=== PATIENT | male | born 1995 | race African-American/Black ===

== ENCOUNTER 2023-11-04 13:08 | Inpatient (IN) | payer OTHER ==
[2023-11-04 13:40] VITALS: BMI 22.3
[2023-11-04] MEDS ORDERED: BENZOCAINE/MENTHOL (CHLORASEPTIC ) LOZENGE MM PRN (16:06)
[2023-11-04] MEDS ORDERED: guaiFENesin 600 MG TABLET.ER (FP) PO PRN (16:06)
[2023-11-04] MEDS ORDERED: MAG HYDROX/AL HYDROX/SIMETH 30 ML UNIT-DOSE CUP PO PRN (16:06)
[2023-11-04] MEDS ORDERED: DICYCLOMINE HCL 10 MG CAPSULE PO PRN (16:06)
[2023-11-04] MEDS ORDERED: ONDANSETRON *ODT* 4 MG TABLET SL PRN (16:06)
[2023-11-04] MEDS ORDERED: IBUPROFEN 400 MG TABLET (FP) PO PRN (16:06)
[2023-11-04] MEDS ORDERED: LOPERAMIDE HCL 2 MG CAPSULE PO PRN (16:06)
[2023-11-04] MEDS ORDERED: BENZONATATE 200 MG CAPSULE PO PRN (16:06)
[2023-11-04] MEDS ORDERED: BISMUTH SUBSALICYLATE 524 MG/30 ML PO PRN (16:06)
[2023-11-04] MEDS ORDERED: POLYETHYLENE GLYCOL (HEALTHYLAX) 3350 17 GM PACKET PO PRN (16:06)
[2023-11-04] MEDS ORDERED: ACETAMINOPHEN 325 MG TABLET (FP) PO PRN (16:06)
[2023-11-04] MEDS ORDERED: NALOXONE HCL (KLOXXADO) 8 MG SPRAY NS PRN (16:06)
[2023-11-04] MEDS ORDERED: MAGNESIUM HYDROX 2400MG/30ML ORAL SUSPENSION 30 ML CUP PO PRN (16:06)
[2023-11-04] MEDS ORDERED: NALOXONE HCL 0.4 MG/ML VIAL IM PRN (16:06)
[2023-11-04] MEDS: IBUPROFEN 600 MG TABLET (FP) PO PRN (18:38)
[2023-11-04] MEDS: NICOTINE 7 MG/24 HOURS TOPICAL PATCH TD SCH (19:01)
[2023-11-04] MEDS: PRENATAL VITAMINS W/ FOLIC ACID TABLET (FP) PO SCH (19:29)
[2023-11-04] MEDS: MELATONIN 5 MG TABLETS PO SCH (22:23)
[2023-11-04] MEDS: THIAMINE HCL 100 MG TABLET (FP) PO SCH (22:24)
[2023-11-04] MEDS: hydrOXYzine PAMOATE 25 MG CAPSULE (FP) PO PRN (22:24)
[2023-11-04] MEDS: METHOCARBAMOL 500 MG TABLET PO PRN (22:24)
[2023-11-05] MEDS: PRENATAL VITAMINS W/ FOLIC ACID TABLET (FP) PO SCH (10:14)
[2023-11-05] MEDS: NICOTINE 7 MG/24 HOURS TOPICAL PATCH TD SCH (10:14)
[2023-11-05] MEDS: hydrOXYzine PAMOATE 25 MG CAPSULE (FP) PO PRN (10:15)
[2023-11-05 11:36] LABS: HEMATOCRIT 39.9 % (35.4-49); HEMOGLOBIN 13.6 GM/dL (11.7-16.9); MCH 30.8 pg (25.7-33.7); MCHC 33.9 g/dl (32.0-35.9); MEAN CELL VOLUME 90.8 fl (80-96); MEAN PLT VOLUME 8.5 fl (7.5-11.1); PLATELET COUNT 259 10^3/uL (134-434); WHITE BLOOD COUNT 7.2 K/mm3 (4.0-10.0)
[2023-11-05 11:44] LABS: CHLORIDE 109 mmol/L (98-107); POTASSIUM 4.3 mmol/L (3.5-5.1); SODIUM 142 mmol/L (136-145)
[2023-11-05 11:48] LABS: BLOOD UREA NITROGEN 10.2 mg/dL (7-18); CALCIUM 9.1 mg/dL (8.5-10.1)
[2023-11-05 11:49] LABS: ANION GAP 6 mmol/L (4-13); CO2 28 mmol/L (21-32); GLUCOSE,RANDOM 89 mg/dL (74-106)
[2023-11-05 11:50] LABS: ALBUMIN 3.2 g/dl (3.4-5.0)
[2023-11-05 11:51] LABS: SGPT/ALT 33 U/L (13-61)
[2023-11-05 11:52] LABS: SGOT/AST 14 U/L (15-37)
[2023-11-05 11:53] LABS: BILIRUBIN,TOTAL 0.1 mg/dL (0.2-1); TOT PROT 6.9 g/dl (6.4-8.2)
[2023-11-05 11:54] LABS: ALK PHOS 77 U/L (45-117); CREATININE 0.6 mg/dL (0.55-1.3)
[2023-11-05] MEDS ORDERED: traZODone HCL 50 MG TABLET (FP) PO SCH (22:00)
[2023-11-05] MEDS: MELATONIN 5 MG TABLETS PO SCH (22:19)
[2023-11-05] MEDS: LACTULOSE 20 GM/30 ML UDC (FOR ORAL USE ONLY) PO SCH (22:19)
[2023-11-05] MEDS: THIAMINE HCL 100 MG TABLET (FP) PO SCH (22:19)
[2023-11-05] MEDS: IBUPROFEN 600 MG TABLET (FP) PO PRN (22:33)
[2023-11-05] MEDS: METHOCARBAMOL 500 MG TABLET PO PRN (22:33)
[2023-11-06 05:55] VITALS: RESP 16
[2023-11-06] MEDS: LACTULOSE 20 GM/30 ML UDC (FOR ORAL USE ONLY) PO SCH (06:07)
[2023-11-06 09:30] VITALS: BP 130/87; PULSE 88; TEMP 97.9
[2023-11-06] MEDS: PRENATAL VITAMINS W/ FOLIC ACID TABLET (FP) PO SCH (10:13)
[2023-11-06] MEDS: NICOTINE 7 MG/24 HOURS TOPICAL PATCH TD SCH (10:13)
== END 2023-11-06 11:08 | disposition other institution (70) | DRG 774 ==
LOC: YASAS 13:08 → Y3N 17:03
PROVIDERS: ADMIT Allergy & Immunology; ATTEND Allergy & Immunology
PROC: HZ2ZZZZ Detoxification Services for Substance Abuse Treatment (ICD-10-PCS; principal; 2023-11-04)
DX: F10.20 Alcohol dependence, uncomplicated (principal); F14.20 Cocaine dependence, uncomplicated; F17.210 Nicotine dependence, cigarettes, uncomplicated; F41.9 Anxiety disorder, unspecified; Z28.310 Unvaccinated for COVID-19; Z28.9 Immunization not carried out for unspecified reason; Z59.01 Sheltered homelessness
CPT/HCPCS: 36415; 80053; 80307; 82140; 85027; 86780; 87635; 93005; 93010

== ENCOUNTER 2024-07-11 21:56 | Inpatient (IN) | payer OTHER ==
[2024-07-11 22:39] VITALS: BMI 25.2
[2024-07-11] MEDS ORDERED: NALOXONE (NARCAN) HCL 4 MG/0.1 ML SPRAY NS PRN (23:00)
[2024-07-11] MEDS ORDERED: MAGNESIUM HYDROX 2400MG/30ML ORAL SUSPENSION 30 ML CUP PO PRN (23:00)
[2024-07-11] MEDS ORDERED: POLYETHYLENE GLYCOL (HEALTHYLAX) 3350 17 GM PACKET PO PRN (23:00)
[2024-07-11] MEDS ORDERED: hydrOXYzine PAMOATE 25 MG CAPSULE (FP) PO PRN (23:00)
[2024-07-11] MEDS: MELATONIN 5 MG TABLETS PO SCH (23:00)
[2024-07-11] MEDS ORDERED: MAG HYDROX/AL HYDROX/SIMETH 30 ML UNIT-DOSE CUP PO PRN (23:00)
[2024-07-11] MEDS ORDERED: guaiFENesin 600 MG TABLET.ER (FP) PO PRN (23:00)
[2024-07-11] MEDS ORDERED: ACETAMINOPHEN 325 MG TABLET (FP) PO PRN (23:00)
[2024-07-11] MEDS ORDERED: BENZONATATE 200 MG CAPSULE PO PRN (23:00)
[2024-07-11] MEDS ORDERED: IBUPROFEN 600 MG TABLET (FP) PO PRN (23:00)
[2024-07-11] MEDS ORDERED: BENZOCAINE/MENTHOL (CHLORASEPTIC ) LOZENGE MM PRN (23:00)
[2024-07-11] MEDS ORDERED: NALOXONE HCL 0.4 MG/ML VIAL IM PRN (23:00)
[2024-07-11] MEDS ORDERED: LOPERAMIDE HCL 2 MG CAPSULE PO PRN (23:00)
[2024-07-11] MEDS ORDERED: MELATONIN 5 MG TABLETS ONE (23:42)
[2024-07-12] MEDS: TUBERCULIN PPD 5 TU/0.1ML SYRINGE (IN PATIENT USE ONLY) ID ONE (10:37)
[2024-07-12] MEDS: NICOTINE 14 MG/24 HOURS TOPICAL PATCH TD SCH (10:37)
[2024-07-12] MEDS: PRENATAL VITAMINS W/ FOLIC ACID TABLET (FP) PO SCH (10:37)
[2024-07-12 14:55] LABS: HEMATOCRIT 41.2 % (35.4-49); HEMOGLOBIN 13.5 GM/dL (11.7-16.9); MCHC 32.7 g/dl (32.0-35.9); MEAN CELL VOLUME 91.7 fl (80-96); MEAN PLT VOLUME 7.9 fl (7.5-11.1); PLATELET COUNT 246 10^3/uL (134-434); RBC 4.49 M/mm3 (4.00-5.60); RDW 14.3 % (11.9-15.9); WHITE BLOOD COUNT 5.7 K/mm3 (4.0-10.0)
[2024-07-12 15:03] LABS: CHLORIDE 108 mmol/L (98-107); POTASSIUM 3.9 mmol/L (3.5-5.1); SODIUM 140 mmol/L (136-145)
[2024-07-12 15:07] LABS: ALBUMIN 3.4 g/dl (3.4-5.0); ANION GAP 4 mmol/L (4-13); BLOOD UREA NITROGEN 11.4 mg/dL (7-18); CALCIUM 8.5 mg/dL (8.5-10.1); CO2 27 mmol/L (21-32)
[2024-07-12 15:08] LABS: GLUCOSE,RANDOM 128 mg/dL (74-106)
[2024-07-12 15:11] LABS: CREATININE 0.7 mg/dL (0.55-1.3); SGOT/AST 50 U/L (15-37); SGPT/ALT 49 U/L (13-61)
[2024-07-12 15:13] LABS: ALK PHOS 73 U/L (45-117); BILIRUBIN,TOTAL 0.3 mg/dL (0.2-1)
[2024-07-12 15:28] LABS: SYPHILIS W/ RPR CONF NON-REACTIVE (NONREACTIVE)
[2024-07-12] MEDS: THIAMINE 100 MG TABLET PO SCH (21:16)
[2024-07-12] MEDS: QUEtiapine FUMARATE 200 MG TABLET PO SCH (21:16)
[2024-07-12] MEDS: NICOTINE POLACRILEX 2 MG GUM BUC PRN (21:17)
[2024-07-12 23:22] LABS: URINE APPEARANCE CLOUDY; URINE BILIRUBIN NEGATIVE (NEGATIVE); URINE COLOR YELLOW; URINE GLUCOSE (UA) NEGATIVE (NEGATIVE); URINE KETONE NEGATIVE (NEGATIVE); URINE LEUK ESTERASE NEGATIVE (NEGATIVE); URINE NITRITE NEGATIVE (NEGATIVE); URINE PROTEIN NEGATIVE (NEGATIVE)
[2024-07-16] MEDS ORDERED: NALOXONE (NYS OPIOID OVERDOSE PROGRAM) 4 MG/0.1 ML SPRAY NS PRN (14:47)
[2024-07-16] MEDS: NALOXONE (NYS OPIOID OVERDOSE PROGRAM) 4 MG/0.1 ML SPRAY NS ONE (15:00)
[2024-07-19] MEDS: IBUPROFEN 400 MG TABLET (FP) PO PRN (11:22)
[2024-07-29] MEDS: BACLOFEN 10 MG TABLET (FP) PO SCH (21:28)
[2024-07-30] MEDS: NICOTINE POLACRILEX 4 MG GUM BUC PRN (21:33)
[2024-08-05 06:42] VITALS: TEMP 97.3
[2024-08-05 09:27] VITALS: BP 119/73; PULSE 91; RESP 18
== END 2024-08-05 09:36 | disposition home or self-care (01) | DRG 772 ==
LOC: YASAS 21:56 → Y3NR 22:54 → Y3W 07-12 09:49
PROVIDERS: ADMIT Allergy & Immunology; ATTEND Psychiatry & Neurology Pain Medicine
PROC: HZ42ZZZ Group Counseling for Substance Abuse Treatment, Cognitive-Behavioral (ICD-10-PCS; principal; 2024-07-11)
DX: F10.20 Alcohol dependence, uncomplicated (principal); F14.20 Cocaine dependence, uncomplicated; F17.210 Nicotine dependence, cigarettes, uncomplicated; F20.9 Schizophrenia, unspecified; F19.282 Other psychoactive substance dependence with psychoactive substance-induced sleep disorder; F19.24 Other psychoactive substance dependence with psychoactive substance-induced mood disorder; F39 Unspecified mood [affective] disorder; F41.9 Anxiety disorder, unspecified; Z59.00 Homelessness unspecified
CPT/HCPCS: 36415; 80053; 80305; 80307; 81003; 82962; 85027; 86780; 86803; 87811; J0475

== ENCOUNTER 2025-03-16 15:08 | Inpatient (IN) | payer OTHER ==
[2025-03-16 15:42] VITALS: BMI 23.3
[2025-03-16] MEDS ORDERED: guaiFENesin 600 MG TABLET.ER (FP) PO PRN (15:50)
[2025-03-16] MEDS ORDERED: ACETAMINOPHEN 325 MG TABLET (FP) PO PRN (15:50)
[2025-03-16] MEDS ORDERED: hydrOXYzine PAMOATE 25 MG CAPSULE (FP) PO PRN (15:50)
[2025-03-16] MEDS ORDERED: POLYETHYLENE GLYCOL (HEALTHYLAX) 3350 17 GM PACKET PO PRN (15:50)
[2025-03-16] MEDS ORDERED: BENZONATATE 200 MG CAPSULE PO PRN (15:50)
[2025-03-16] MEDS ORDERED: MAGNESIUM HYDROX 2400MG/30ML ORAL SUSPENSION 30 ML CUP PO PRN (15:50)
[2025-03-16] MEDS ORDERED: NALOXONE (NARCAN) HCL 4 MG/0.1 ML SPRAY NS PRN (15:50)
[2025-03-16] MEDS ORDERED: LOPERAMIDE HCL 2 MG CAPSULE PO PRN (15:50)
[2025-03-16] MEDS ORDERED: IBUPROFEN 400 MG TABLET (FP) PO PRN (15:50)
[2025-03-16] MEDS ORDERED: BENZOCAINE/MENTHOL (CHLORASEPTIC ) LOZENGE MM PRN (15:50)
[2025-03-16] MEDS: THIAMINE 100 MG TABLET PO SCH (21:10)
[2025-03-16] MEDS: MELATONIN 5 MG TABLETS PO SCH (21:10)
[2025-03-17] MEDS: PRENATAL VITAMINS W/ FOLIC ACID TABLET (FP) PO SCH (10:10)
[2025-03-17] MEDS: NICOTINE POLACRILEX 2 MG GUM BUC PRN (10:49)
[2025-03-17 12:48] LABS: MCHC 32.7 g/dl (32.3-36.5); MEAN CELL VOLUME 90.1 fl (79.0-92.2); MEAN PLT VOLUME 9.8 fl (9.4-12.4); RDW 12.7 % (12.0-15.6)
[2025-03-17 13:01] LABS: CO2 25.0 mmol/L (21-32); GLUCOSE,RANDOM 111.0 mg/dL (74-106)
[2025-03-17 13:04] LABS: SGOT/AST 19.0 U/L (15-37); SGPT/ALT 23.0 U/L (13-61)
[2025-03-17 13:05] LABS: CREATININE 0.8 mg/dL (0.55-1.3)
[2025-03-17 13:06] LABS: ALK PHOS 83.0 U/L (45-117); TOT PROT 7.6 g/dl (6.4-8.2)
[2025-03-17 15:23] LABS: HCV DIAGNOSTIC IN-HOUSE W/RFLX NON-REACTIVE (NONREACTIVE); HIV INTERPRETATION NEGATIVE (NEGATIVE)
[2025-03-20] MEDS: IBUPROFEN 600 MG TABLET (FP) PO PRN (09:10)
[2025-03-20 11:31] LABS: URINE APPEARANCE CLEAR; URINE BILIRUBIN NEGATIVE (NEGATIVE); URINE COLOR YELLOW; URINE GLUCOSE (UA) NEGATIVE (NEGATIVE); URINE KETONE NEGATIVE (NEGATIVE); URINE LEUK ESTERASE NEGATIVE (NEGATIVE); URINE NITRITE NEGATIVE (NEGATIVE); URINE PROTEIN NEGATIVE (NEGATIVE); URINE UROBILINOGEN 0.2 mg/dL (0.2-1.0)
[2025-03-26] MEDS: CEPHALEXIN MONOHYDRATE 500 MG CAPSULE (UD) PO SCH (11:08)
[2025-03-29] MEDS: MAG HYDROX/AL HYDROX/SIMETH 30 ML UNIT-DOSE CUP PO PRN (09:51)
[2025-03-29] MEDS: CLINDAMYCIN PHOSPHATE 1% TOPICAL GEL 30 GM TUBE TP SCH (13:14)
[2025-03-29] MEDS: MIRTAZAPINE 15 MG TABLET (FP) PO SCH (21:41)
[2025-04-01] MEDS: MIRTAZAPINE 15 MG TABLET (FP) PO SCH (21:10)
[2025-04-05] MEDS: NICOTINE POLACRILEX 2 MG LOZENGE BC PRN (18:50)
[2025-04-12 07:43] VITALS: RESP 17
[2025-04-13 07:04] VITALS: BP 99/72; PULSE 86; TEMP 97.5
== END 2025-04-13 09:29 | disposition home or self-care (01) | DRG 772 ==
LOC: YASAS 15:08 → Y3E 19:31
PROVIDERS: ADMIT Psychiatry & Neurology Pain Medicine; ATTEND Psychiatry & Neurology Pain Medicine
PROC: HZ42ZZZ Group Counseling for Substance Abuse Treatment, Cognitive-Behavioral (ICD-10-PCS; principal; 2025-03-16)
DX: F14.20 Cocaine dependence, uncomplicated (principal); F17.210 Nicotine dependence, cigarettes, uncomplicated; F25.9 Schizoaffective disorder, unspecified; F19.282 Other psychoactive substance dependence with psychoactive substance-induced sleep disorder; F19.24 Other psychoactive substance dependence with psychoactive substance-induced mood disorder; F41.9 Anxiety disorder, unspecified; G47.00 Insomnia, unspecified; L02.411 Cutaneous abscess of right axilla; Z59.00 Homelessness unspecified
CPT/HCPCS: 36415; 80053; 81003; 85027; 86780; 86803; 87389; 93005; 93010